=== PATIENT | female | born 2000 | race Hispanic/Latino ===

== ENCOUNTER 2018-10-30 16:23 | Emergency (ER) | payer OTHER ==
[2018-10-30 17:38] LABS: BASOPHILS % (AUTO) 0.3 % (0.0-5.0); EOSINOPHILS % (AUTO) 0.6 % (0.0-8.0); HEMATOCRIT 39.3 % (36-48); MEAN CORPUSCULAR HEMOGLOBIN 31.4 pg (27.0-33.0); MEAN CORPUSCULAR HGB CONC 34.2 g/dL (32.0-36.0); MONOCYTES % (AUTO) 6.2 % (3.0-13.0); NEUTROPHILS % (AUTO) 65.9 % (40.0-77.0); NUCLEATED RED BLOOD CELLS 0.1 % (0.0-0.19); PLATELET COUNT (AUTO) 271 K/uL (130-400); RED BLOOD CELL COUNT(AUTO) 4.28 MIL/uL (4.00-5.50); RED CELL DISTRIBUTION WIDTH 12.5 % (11.0-15.5); WHITE BLOOD COUNT (AUTO) 9.1 K/uL (4.8-10.8)
[2018-10-30 17:49] LABS: CREATININE 0.9 mg/dL (0.5-1.5); POTASSIUM 3.8 mmol/L (3.5-5.1)
[2018-10-30 17:53] LABS: ALBUMIN 4.2 g/dL (3.5-5.0); BILIRUBIN,TOTAL 0.2 mg/dL (0.2-1.0); TOTAL PROTEIN, SERUM 7.8 g/dL (6.0-8.3)
[2018-10-30] MEDS ORDERED: ONDANSETRON HCL 4 MG/2 ML VIAL ONE (17:54)
[2018-10-30] MEDS ORDERED: SODIUM CHLORIDE 0.9% 1000ML 1,000 ML IV ONE (17:55)
[2018-10-30] MEDS ORDERED: MORPHINE SULFATE 4 MG/1ML SYG ONE (17:55)
[2018-10-30 18:21] LABS: BILIRUBIN,URINE Negative (NEGATIVE); COLOR,URINE Yellow (YELLOW); GLUCOSE, URINE (UA) Negative (NEGATIVE); KETONES,URINE Negative (NEGATIVE); LEUKOCYTE ESTERASE ,URINE Small (NEGATIVE); NITRATE,URINE Negative (NEGATIVE); OCCULT BLOOD,URINE Negative (NEGATIVE); PH,URINE 7.5 (5.0-8.0); PROTEIN,URINE Negative (NEGATIVE)
[2018-10-30 18:22] LABS: APPEARANCE,URINE SLIGHTLY CLOUDY (CLEAR)
[2018-10-30 18:23] LABS: HCG,QUAL RESULT NEGATIVE (NEGATIVE)
[2018-10-30 18:31] LABS: MUCUS,URINE Rare LPF (None Seen)
[2018-10-30 18:32] LABS: BACTERIA,URINE Moderate /HPF (None Seen)
== END 2018-10-30 20:17 | disposition home or self-care (01) ==
LOC: EDH 16:23
DX: K64.4 Residual hemorrhoidal skin tags (principal); R10.84 Generalized abdominal pain; Z87.891 Personal history of nicotine dependence
CPT/HCPCS: 36415; 80053; 81001; 81025; 82270; 83690; 85025; 96374; 96375; 99283; J2270; J2405; J7030